=== PATIENT | male | born 1980 | race Caucasian/White ===

== ENCOUNTER 2022-12-01 13:44 | Observation (INO) | payer OTHER ==
[2022-12-01] VITALS (24 sets, daily range): BP systolic 87–124; BP diastolic 39–77
[~2022-12-01] VITALS: Ht 152.4 cm; Wt 68.0 kg
[2022-12-01 14:21] LABS: BASO% 0.1 % (0-3); EOS% 0.2 % (0-8); HEMATOCRIT 25.6 % (39.0-50.0); HEMOGLOBIN 8.8 g/dl (14.0-18.0); IMMATURE GRANULOCYTES 0.4 % (0.0-5.0); LYMPH% 25.7 % (15-41); MEAN CELL VOLUME 85.6 fL CALC (80.0-100.0); MEAN CORPUSCULAR HGB 29.4 pG CALC (26.0-32.0); MEAN CORPUSCULAR HGB CONC 34.4 g/dL CAL (32.0-36.0); MONO% 12.8 % (2-13); NEUT# 6.9 thou/uL (1.82-7.42); NEUT% 60.8 % (42-76); RED BLOOD COUNT 2.99 mill/uL (4.70-6.10); RED CELL DISTRI WIDTH 13.1 % (11.5-15.5)
[2022-12-01 14:41] LABS: ALBUMIN 2.8 g/dL (3.2-5.0); ALKALINE PHOSPHATASE 52 u/l (38-126); ANION GAP 9 (6-22 (CALC)); BILIRUBIN, TOTAL 0.6 mg/dL (0.2-1.3); BUN 54 mg/dL (9-20); BUN/CREATININE RATIO 84 (12-20 (CALC)); CARBON DIOXIDE 18 mmol/l (22-30); CHLORIDE 109 mmol/l (95-108); CPK 27 u/l (55-170); CREATININE 0.6 mg/dL (0.7-1.3); GFR FOR AFR.AMER. > 60 ML/MIN (>=60 (CALC)); GFR OTHER RACES > 60 ML/MIN (>=60 (CALC)); POTASSIUM 3.2 mmol/l (3.5-5.1); SGOT/AST 21 u/l (17-59); SODIUM 134 mmol/l (137-146); TOTAL PROTEIN 5.5 g/dL (6.3-8.2)
[2022-12-01 14:42] LABS: AMYLASE 39 u/l (30-110); LIPASE 53 u/l (23-300)
[2022-12-01 15:12] LABS: TSH, 3RD GENERATION 0.24 uIU/mL (0.47 - 4.68)
[2022-12-01 16:30] LABS: URINE BILIRUBIN - DIPSTICK Negative (NEGATIVE); URINE BLOOD DIPSTICK Negative (NEGATIVE); URINE GLUCOSE - DIPSTICK Negative (NEGATIVE); URINE KETONE 15 mg/dL (NEGATIVE); URINE NITRITE - DIPSTICK Negative (Negative); URINE PROTEIN - DIPSTICK Negative (NEG-TRACE)
[2022-12-01 16:35] LABS: URINE COLOR Yellow; URINE LEUK ESTERASE Small (NEGATIVE)
[2022-12-01 16:40] LABS: URINE RBC 0-2 RBC/hpf (0-5)
[2022-12-02] VITALS (109 sets, daily range): BP systolic 88–136; BP diastolic 29–76
[2022-12-02 05:41] LABS: BASO% 0.1 % (0-3); IMMATURE GRANULOCYTES 0.4 % (0.0-5.0); MONO% 10.1 % (2-13); NEUT# 8.89 thou/uL (1.82-7.42); NEUT% 61.4 % (42-76); RED BLOOD COUNT 2.17 mill/uL (4.70-6.10); RED CELL DISTRI WIDTH 13.6 % (11.5-15.5)
[2022-12-02 05:58] LABS: ALBUMIN 3.1 g/dL (3.2-5.0); ALKALINE PHOSPHATASE 48 u/l (38-126); BUN 38 mg/dL (9-20); BUN/CREATININE RATIO 61 (12-20 (CALC)); CALCULATED LDLCHOLESTEROL 43 mg/dL (62-129 (CALC)); CARBON DIOXIDE 19 mmol/l (22-30); CHLORIDE 110 mmol/l (95-108); CHOLESTEROL HDL RATIO 4.3 (<4.4 (CALC)); CREATININE 0.6 mg/dL (0.7-1.3); GFR FOR AFR.AMER. > 60 ML/MIN (>=60 (CALC)); GFR OTHER RACES > 60 ML/MIN (>=60 (CALC)); HDL CHOLESTEROL 20 mg/dL (39.0-59.0); SGOT/AST 22 u/l (17-59); SODIUM 136 mmol/l (137-146); TOTAL CHOLESTEROL 87 mg/dl (0-199); TOTAL PROTEIN 5.5 g/dL (6.3-8.2); TOTAL TRIGLYCERIDES 116 mg/dl (0-149); VLDL CHOLESTROL 23 mg/dl (5-56 (CALC))
[2022-12-02 05:59] LABS: ANION GAP 11 (6-22 (CALC)); BILIRUBIN, TOTAL 0.3 mg/dL (0.2-1.3); POTASSIUM 4.1 mmol/l (3.5-5.1)
[2022-12-02 06:07] LABS: HEMOGLOBIN 6.3 g/dl (14.0-18.0)
[2022-12-02 06:08] LABS: HEMATOCRIT 19.1 % (39.0-50.0)
[2022-12-02 07:41] LABS: HEMATOCRIT 28.3 % (39.0-50.0); HEMOGLOBIN 8.9 g/dl (14.0-18.0)
[2022-12-02 08:48] LABS: INTERNATIONAL NORMALIZED RATIO 1.3 RATIO (0.7-1.3); PROTHROMBIN TIME 12.5 SECONDS (9.0-12.5)
[2022-12-02 17:07] LABS: BASO% 0.1 % (0-3); EOS% 0.1 % (0-8); IMMATURE GRANULOCYTES 2.8 % (0.0-5.0); LYMPH% 30.3 % (15-41); MEAN CORPUSCULAR HGB CONC 30.5 g/dL CAL (32.0-36.0); MONO% 10.2 % (2-13); NEUT# 16.52 thou/uL (1.82-7.42); NEUT% 56.5 % (42-76); RED CELL DISTRI WIDTH 14.3 % (11.5-15.5)
[2022-12-02 17:25] LABS: ALKALINE PHOSPHATASE 33 u/l (38-126); BILIRUBIN, TOTAL 0.2 mg/dL (0.2-1.3); BUN 38 mg/dL (9-20); BUN/CREATININE RATIO 54 (12-20 (CALC)); CHLORIDE 112 mmol/l (95-108); CREATININE 0.7 mg/dL (0.7-1.3); GFR FOR AFR.AMER. > 60 ML/MIN (>=60 (CALC)); GFR OTHER RACES > 60 ML/MIN (>=60 (CALC)); POTASSIUM 4.1 mmol/l (3.5-5.1); SGOT/AST 24 u/l (17-59); SODIUM 132 mmol/l (137-146)
[2022-12-02 17:43] LABS: ANION GAP 9 (6-22 (CALC)); CARBON DIOXIDE 15 mmol/l (22-30); HEMATOCRIT 9.5 % (39.0-50.0); HEMOGLOBIN 2.9 g/dl (14.0-18.0); TOTAL PROTEIN 3.9 g/dL (6.3-8.2)
[2022-12-02 20:25] LABS: HEMATOCRIT 18.6 % (39.0-50.0); HEMOGLOBIN 6.5 g/dl (14.0-18.0)
== END 2022-12-02 21:40 | disposition short-term general hospital (02) | DRG 897 ==
LOC: ED 13:44 → ED-I 18:11 → ED 18:22 → ICU 18:23
PROVIDERS: Nurse Practitioner Family; Student in an Organized Health Care Education/Training Program; ADMIT Student in an Organized Health Care Education/Training Program; ATTEND Student in an Organized Health Care Education/Training Program
PROC: 02HV33Z Insertion of Infusion Device into Superior Vena Cava, Percutaneous Approach (ICD-10-PCS; principal; 2022-12-02)
PROC: 30243R1 Transfusion of Nonautologous Platelets into Central Vein, Percutaneous Approach (ICD-10-PCS; 2022-12-02)
PROC: 30243N1 Transfusion of Nonautologous Red Blood Cells into Central Vein, Percutaneous Approach (ICD-10-PCS; 2022-12-02)
PROC: 30243N1 Transfusion of Nonautologous Red Blood Cells into Central Vein, Percutaneous Approach (ICD-10-PCS; 2022-12-02)
PROC: 30243N1 Transfusion of Nonautologous Red Blood Cells into Central Vein, Percutaneous Approach (ICD-10-PCS; 2022-12-02)
PROC: 30243N1 Transfusion of Nonautologous Red Blood Cells into Central Vein, Percutaneous Approach (ICD-10-PCS; 2022-12-02)
PROC: 30243N1 Transfusion of Nonautologous Red Blood Cells into Central Vein, Percutaneous Approach (ICD-10-PCS; 2022-12-02)
PROC: 0T9B70Z Drainage of Bladder with Drainage Device, Via Natural or Artificial Opening (ICD-10-PCS; 2022-12-02)
DX: F15.23 Other stimulant dependence with withdrawal (principal); K92.1 Melena; F11.23 Opioid dependence with withdrawal; R07.9 Chest pain, unspecified; F13.239 Sedative, hypnotic or anxiolytic dependence with withdrawal, unspecified; B19.20 Unspecified viral hepatitis C without hepatic coma; F17.210 Nicotine dependence, cigarettes, uncomplicated; I95.9 Hypotension, unspecified; D64.9 Anemia, unspecified; F10.10 Alcohol abuse, uncomplicated; R56.9 Unspecified convulsions; K59.00 Constipation, unspecified
CPT/HCPCS: J1650; J2354; P9016; S0164